=== PATIENT | male | born 1965 | race African-American/Black ===

== ENCOUNTER 2017-06-01 15:52 | Inpatient (IN) ==
[2017-06-01 17:35] LABS: Basophils # 0.1 10*3/uL (0.0-0.2); Basophils % 0.4 % (0.0-0.8); Eosinophils # 0.1 10*3/uL (0.0-0.87); Eosinophils % 0.9 % (0.00-10.9); Hematocrit 40.3 VOL% (42.0-52.0); Hemoglobin 14.1 GM/DL (14.0-18.0); Immature Granulocytes % 0.7 %; Immature Granulocytes Absolute 0.11 #; Lymphocytes # 1.5 10*3/uL (1.4-4.0); Lymphocytes % 9.4 % (21.2-54.2); Mean Corpuscular Hemoglobin 30 PG (27-34); Mean Corpuscular Volume 84.7 FL (87-102); Mean Platelet Volume 10.1 FL (9.6-12.0); Monocytes # 1.2 10*3/uL (0.11-0.8); Monocytes % 7.4 % (1.7-12.7); Neutrophils % 81.2 % (38.7-73.9); Platelet Count 401 T/CUMM (130-400); Red Blood Count 4.76 MC/CUMM (3.8-5.5); Red Cell Distribution Width 12.6 % (9.3-17.3)
[2017-06-01 17:46] LABS: PT Patient Result 10.4 SECS
[2017-06-01 18:04] LABS: Alanine Aminotransferase 46 U/L (16-61); Albumin 3.3 G/DL (3.4-5.0); Alkaline Phosphatase 107 U/L (45-117); Aspartate Amino Transferase 21 U/L (0-37); Blood Urea Nitrogen 14 MG/DL (7-18); Calcium 9.3 MG/DL (8.5-10.1); Glucose 96 MG/DL (74-106); Magnesium 2.2 MG/DL (1.8-2.4); Osmolality,Calculated 264.5 MOS/KG (273-304); Potassium 4.1 MMOL/L (3.5-5.1); Sodium 132 MMOL/L (136-145); Total Protein 7.8 G/DL (6.4-8.3); Troponin I Only < 0.015 NG/ML (0.00-0.045)
[2017-06-01] MEDS ORDERED: KETOROLAC 30 MG/1 ML VIAL IV STA (18:43)
[2017-06-01] MEDS ORDERED: methylPREDNISolone SOD SUC 125 MG/2 ML VIAL IV STA (18:43)
[2017-06-01] MEDS ORDERED: ONDANSETRON 4 MG/2 ML VIAL IV STA (18:43)
[2017-06-01] MEDS ORDERED: MORPHINE 2 MG/1 ML SYRINGE IV STA (18:43)
[2017-06-01] MEDS ORDERED: ENOXAPARIN 100 MG/ML SYRINGE SUBCUT STA (19:26)
[2017-06-01] MEDS ORDERED: KETOROLAC 30 MG/1 ML VIAL ONE (19:29)
[2017-06-01] MEDS ORDERED: ENOXAPARIN 100 MG/ML SYRINGE SUBCUT ONE (19:29)
[2017-06-01] MEDS ORDERED: methylPREDNISolone SOD SUC 125 MG/2 ML VIAL ONE (19:29)
[2017-06-01] MEDS ORDERED: ONDANSETRON 4 MG/2 ML VIAL ONE (19:29)
[2017-06-01] MEDS ORDERED: MORPHINE 2 MG/1 ML SYRINGE ONE (19:29)
[2017-06-01] MEDS ORDERED: ALBUTEROL/IPRATROPIUM 3 ML NEB RESP TX STA ×2 (20:01→20:59)
[2017-06-01] MEDS ORDERED: LACTULOSE 20 GM/30 ML UDCUP PO PRN (20:38)
[2017-06-01] MEDS ORDERED: ONDANSETRON 4 MG/2 ML VIAL IV PRN (20:38)
[2017-06-01] MEDS ORDERED: ENOXAPARIN 40 MG/0.4 ML SYRINGE SUBCUT STA (20:38)
[2017-06-01] MEDS ORDERED: BISACODYL 5 MG TABLET PO PRN (20:38)
[2017-06-01] MEDS ORDERED: MORPHINE 2 MG/1 ML SYRINGE IV PRN (20:38)
[2017-06-01] MEDS ORDERED: NICOTINE 21 MG/24 HR PATCH TRANSDERM PRN (20:38)
[2017-06-01] MEDS ORDERED: DOCUSATE SODIUM 100 MG CAPSULE PO PRN (20:38)
[2017-06-01] MEDS ORDERED: cefTRIAXone 1,000 MG in SODIUM CHLORIDE 0.9% 100 ML IV STA (20:43)
[2017-06-01 21:44] LABS: Free T4 (Free Thyroxine) 1.53 NG/DL (0.76-1.46); Magnesium 2.2 MG/DL (1.8-2.4); Risk Ratio 4.07; Thyroid Stimulating Hormone 1.24 uIU/ml (0.358-3.74); VLDL CHOLESTEROL 17.8 MG/DL
[2017-06-01] MEDS ORDERED: ALBUTEROL NEB SOLN 5 MG/ML 20 ML/BOTTLE CONT NEB STA (22:31)
[2017-06-02] MEDS: SENNA 8.6 MG TABLET PO SCH ×2 (00:46→22:52)
[2017-06-02] MEDS: MELATONIN 3 MG TABLET PO PRN (00:46)
[2017-06-02 01:18] LABS: Troponin I Only < 0.015 NG/ML (0.00-0.045)
[2017-06-02] MEDS ORDERED: cefTRIAXone 1,000 MG VIAL ONE (02:01)
[2017-06-02] MEDS ORDERED: SODIUM CHLORIDE 0.9% 50 ML IV ONE (02:01)
[2017-06-02 02:37] LABS: Apearance,Urine CLEAR (Clear); Bilirubin,Urine Negative (Negative); Blood, Urine Moderate mg/dL (Negative); Glucose,Urine (UA) Negative (Negative); Ketones,Urine Negative (Negative); Nitrite,Urine Negative (Negative); Protein,Urine Negative; RBC,Urine 1 /HPF (0-4); Urine Color Yellow (Yellow); Urine Specific Gravity 1.033 (1.001-1.035); WBC,Urine 1 /HPF (0-6)
[2017-06-02 05:24] LABS: Eosinophils % 0.1 % (0.00-10.9); Hematocrit 33.6 VOL% (42.0-52.0); Hemoglobin 11.9 GM/DL (14.0-18.0); Immature Granulocytes % 0.8 %; Immature Granulocytes Absolute 0.11 #; Lymphocytes # 0.6 10*3/uL (1.4-4.0); Lymphocytes % 4.9 % (21.2-54.2); Mean Corpuscular HGB Conc 35.4 GM/DL (32-36); Mean Corpuscular Hemoglobin 30 PG (27-34); Mean Corpuscular Volume 83.8 FL (87-102); Monocytes # 0.4 10*3/uL (0.11-0.8); Neutrophils # 11.9 10*3/uL (1.4-7.4); Neutrophils % 91.2 % (38.7-73.9); Platelet Count 368 T/CUMM (130-400); Red Blood Count 4.01 MC/CUMM (3.8-5.5); Red Cell Distribution Width 12.5 % (9.3-17.3)
[2017-06-02 05:59] LABS: Lymphocytes 1 % (20-55); Platelet Estimate Adequate; Segmented Neutrophils 95 % (50-85); Total Cells Counted 100
[2017-06-02 06:00] LABS: Giant Platelets Few; Hypochromasia Slight; Ovalocytes Slight
[2017-06-02 06:04] LABS: Albumin 2.7 G/DL (3.4-5.0); Bilirubin,Total 0.4 MG/DL (0.2-1.0); Calcium 8.9 MG/DL (8.5-10.1); Osmolality,Calculated 268.5 MOS/KG (273-304); Potassium 4.3 MMOL/L (3.5-5.1); Total Protein 6.5 G/DL (6.4-8.3)
[2017-06-02 06:40] LABS: Carcinoembryonic Antigen 1.4 NG/ML (0.0-5.0)
[2017-06-02] MEDS ORDERED: AZITHROMYCIN 250 MG TABLET PO SCH (09:00)
[2017-06-02] MEDS: methylPREDNISolone SOD SUC 40 MG/1 ML VIAL IV SCH ×2 (09:03→22:51)
[2017-06-02] MEDS: hydroCHLOROthiazide 25 MG TABLET PO SCH (09:03)
[2017-06-02] MEDS: PANTOPRAZOLE 40 MG TABLET PO SCH (09:03)
[2017-06-02] MEDS: ENOXAPARIN 100 MG/ML SYRINGE SUBCUT SCH ×2 (09:04→22:50)
[2017-06-02 09:14] LABS: ABG Base Excess 0.2 MMOL/L (-2.5-2.5); ABG HCO3 24.5 MMOL/L (20-26); ABG Oxygen Saturation 96.2 % (95-100); ABG PCO2 36.1 MM HG (35-48); ABG PH 7.432 (7.35-7.45); ABG PO2 81.9 MM HG (80-95); ABG TCO2 21.3 MMOL/L (23-27); Allen Test Positive; Pt O2 Delivery Device Room Air
[2017-06-02] MEDS: WARFARIN 5 MG TABLET PO SCH (17:03)
[2017-06-02] MEDS: DOXYCYCLINE HYCLATE 100 MG CAPSULE PO SCH (22:52)
[2017-06-03 08:06] LABS: PT Patient Result 10.5 SECS
[2017-06-03] MEDS ORDERED: APIXABAN 5 MG TABLET PO SCH (09:00)
[2017-06-03] MEDS: ENOXAPARIN 100 MG/ML SYRINGE SUBCUT SCH ×2 (09:04→22:01)
[2017-06-03] MEDS: methylPREDNISolone SOD SUC 40 MG/1 ML VIAL IV SCH (09:05)
[2017-06-03] MEDS: hydroCHLOROthiazide 25 MG TABLET PO SCH (09:05)
[2017-06-03] MEDS: PANTOPRAZOLE 40 MG TABLET PO SCH (09:05)
[2017-06-03] MEDS: DOXYCYCLINE HYCLATE 100 MG CAPSULE PO SCH ×2 (09:12→22:01)
[2017-06-03] MEDS: NICOTINE 21 MG/24 HR PATCH TRANSDERM SCH (17:58)
[2017-06-03] MEDS: WARFARIN 5 MG TABLET PO SCH (17:58)
[2017-06-03] MEDS: SENNA 8.6 MG TABLET PO SCH (22:03)
[2017-06-04] MEDS: oxyCODONE/ACETAMINOPHEN 5-325 MG TABLET PO PRN ×2 (05:40→23:17)
[2017-06-04 07:50] LABS: PT Patient Result 10.8 SECS
[2017-06-04] MEDS: ENOXAPARIN 100 MG/ML SYRINGE SUBCUT SCH ×2 (08:55→21:43)
[2017-06-04] MEDS: hydroCHLOROthiazide 25 MG TABLET PO SCH (08:55)
[2017-06-04] MEDS: DOXYCYCLINE HYCLATE 100 MG CAPSULE PO SCH ×2 (08:55→21:43)
[2017-06-04] MEDS: NICOTINE 21 MG/24 HR PATCH TRANSDERM SCH (08:55)
[2017-06-04 16:56] LABS: F5DNA Reviewed By SEE COMMENTS; Factor V Leiden (R506Q) Mutati Negative (Negative)
[2017-06-04] MEDS ORDERED: ACETAMINOPHEN 325 MG TABLET ONE (17:07)
[2017-06-04] MEDS ORDERED: ACETAMINOPHEN 325 MG TABLET PO PRN (17:13)
[2017-06-04] MEDS: WARFARIN 7.5 MG TABLET PO SCH (17:49)
[2017-06-04] MEDS: SENNA 8.6 MG TABLET PO SCH (21:43)
[2017-06-05 05:51] LABS: INR 1.1; PT Patient Result 11.7 SECS
[2017-06-05] MEDS: ENOXAPARIN 100 MG/ML SYRINGE SUBCUT SCH ×2 (09:05→21:37)
[2017-06-05] MEDS: DOXYCYCLINE HYCLATE 100 MG CAPSULE PO SCH ×2 (09:05→21:37)
[2017-06-05] MEDS: NICOTINE 21 MG/24 HR PATCH TRANSDERM SCH (09:05)
[2017-06-05] MEDS: hydroCHLOROthiazide 25 MG TABLET PO SCH (09:05)
[2017-06-05] MEDS: WARFARIN 7.5 MG TABLET PO SCH (17:33)
[2017-06-05] MEDS: oxyCODONE/ACETAMINOPHEN 5-325 MG TABLET PO PRN (17:35)
[2017-06-05] MEDS: SENNA 8.6 MG TABLET PO SCH (21:37)
[2017-06-06 06:21] LABS: Basophils # 0.1 10*3/uL (0.0-0.2); Basophils % 0.5 % (0.0-0.8); Eosinophils # 0.4 10*3/uL (0.0-0.87); Eosinophils % 3.2 % (0.00-10.9); Hematocrit 39.1 VOL% (42.0-52.0); Hemoglobin 13.8 GM/DL (14.0-18.0); Immature Granulocytes % 1.5 %; Immature Granulocytes Absolute 0.18 #; Lymphocytes # 1.3 10*3/uL (1.4-4.0); Lymphocytes % 10.9 % (21.2-54.2); Mean Corpuscular HGB Conc 35.3 GM/DL (32-36); Mean Corpuscular Hemoglobin 30 PG (27-34); Mean Corpuscular Volume 83.9 FL (87-102); Mean Platelet Volume 9.9 FL (9.6-12.0); Monocytes # 0.8 10*3/uL (0.11-0.8); Monocytes % 6.2 % (1.7-12.7); Neutrophils # 9.4 10*3/uL (1.4-7.4); Neutrophils % 77.7 % (38.7-73.9); Platelet Count 463 T/CUMM (130-400); Red Blood Count 4.66 MC/CUMM (3.8-5.5); Red Cell Distribution Width 12.6 % (9.3-17.3); White Blood Count 12.1 T/CUMM (4-12)
[2017-06-06 06:29] LABS: INR 1.3; PT Patient Result 13.3 SECS
[2017-06-06 06:52] LABS: Alanine Aminotransferase 42 U/L (16-61); Alkaline Phosphatase 121 U/L (45-117); Aspartate Amino Transferase 20 U/L (0-37); Bilirubin,Total < 0.39 MG/DL (0.2-1.0); Blood Urea Nitrogen 14 MG/DL (7-18); Calcium 9.2 MG/DL (8.5-10.1); Glucose 130 MG/DL (74-106); Osmolality,Calculated 264.7 MOS/KG (273-304); Potassium 4.4 MMOL/L (3.5-5.1); Sodium 131 MMOL/L (136-145)
[2017-06-06] MEDS: ENOXAPARIN 100 MG/ML SYRINGE SUBCUT SCH ×2 (09:44→21:01)
[2017-06-06] MEDS: DOXYCYCLINE HYCLATE 100 MG CAPSULE PO SCH ×2 (09:45→21:02)
[2017-06-06] MEDS: hydroCHLOROthiazide 25 MG TABLET PO SCH (09:45)
[2017-06-06] MEDS: NICOTINE 21 MG/24 HR PATCH TRANSDERM SCH (09:45)
[2017-06-06] MEDS: LEVOFLOXACIN 500 MG TABLET PO SCH (17:50)
[2017-06-06] MEDS: WARFARIN 7.5 MG TABLET PO SCH (17:50)
[2017-06-06] MEDS: oxyCODONE/ACETAMINOPHEN 5-325 MG TABLET PO PRN (21:01)
[2017-06-06] MEDS: SENNA 8.6 MG TABLET PO SCH (21:05)
[2017-06-07 06:24] LABS: INR 1.6; PT Patient Result 16.2 SECS
[2017-06-07] MEDS: DOXYCYCLINE HYCLATE 100 MG CAPSULE PO SCH ×2 (08:51→20:05)
[2017-06-07] MEDS: LEVOFLOXACIN 500 MG TABLET PO SCH (08:51)
[2017-06-07] MEDS: hydroCHLOROthiazide 25 MG TABLET PO SCH (08:51)
[2017-06-07] MEDS: ENOXAPARIN 100 MG/ML SYRINGE SUBCUT SCH ×2 (08:51→20:04)
[2017-06-07] MEDS: NICOTINE 21 MG/24 HR PATCH TRANSDERM SCH (08:51)
[2017-06-07] MEDS: WARFARIN 7.5 MG TABLET PO SCH (18:21)
[2017-06-07] MEDS: SENNA 8.6 MG TABLET PO SCH (20:04)
[2017-06-07] MEDS: oxyCODONE/ACETAMINOPHEN 5-325 MG TABLET PO PRN (20:05)
[2017-06-07] MEDS: MELATONIN 3 MG TABLET PO PRN (21:54)
[2017-06-08] MEDS: oxyCODONE/ACETAMINOPHEN 5-325 MG TABLET PO PRN ×2 (03:41→12:53)
[2017-06-08 07:53] LABS: INR 2.1
[2017-06-08 07:55] LABS: PT Patient Result 21.7 SECS
[2017-06-08] MEDS: NICOTINE 21 MG/24 HR PATCH TRANSDERM SCH (09:56)
[2017-06-08] MEDS: hydroCHLOROthiazide 25 MG TABLET PO SCH (09:56)
[2017-06-08] MEDS: DOXYCYCLINE HYCLATE 100 MG CAPSULE PO SCH (09:56)
[2017-06-08] MEDS: LEVOFLOXACIN 500 MG TABLET PO SCH (09:56)
[2017-06-08] MEDS: ENOXAPARIN 100 MG/ML SYRINGE SUBCUT SCH (09:57)
[2017-06-08 12:24] VITALS: BP 133/78
== END 2017-06-08 15:00 | disposition home or self-care (01) | DRG 175 ==
LOC: N.ED 15:52 → SUATTDRO 20:37 → N.ICU 20:37 → N.5E 06-02 17:46
PROVIDERS: ADMIT Internal Medicine; ATTEND Hospitalist

== ENCOUNTER 2018-08-03 09:55 | Observation (INO) ==
[2018-08-03] MEDS ORDERED: ASPIRIN 325 MG TABLET PO STA (10:24)
[2018-08-03] MEDS ORDERED: LABETALOL 20 MG/4 ML SYRINGE IV STA (10:24)
[2018-08-03 10:30] LABS: Basophils % 0.4 % (0.0-0.8); Eosinophils # 0.1 10*3/uL (0.0-0.87); Eosinophils % 1.2 % (0.00-10.9); Hematocrit 42.2 VOL% (42.0-52.0); Hemoglobin 14.1 GM/DL (14.0-18.0); Immature Granulocytes % 0.4 %; Immature Granulocytes Absolute 0.04 #; Lymphocytes # 1.8 10*3/uL (1.4-4.0); Lymphocytes % 19.5 % (21.2-54.2); Mean Corpuscular HGB Conc 33.4 GM/DL (32-36); Mean Corpuscular Hemoglobin 29 PG (27-34); Mean Corpuscular Volume 87.6 FL (87-102); Mean Platelet Volume 10.1 FL (9.6-12.0); Monocytes # 0.5 10*3/uL (0.11-0.8); Monocytes % 5.2 % (1.7-12.7); Neutrophils # 6.7 10*3/uL (1.4-7.4); Neutrophils % 73.3 % (38.7-73.9); Platelet Count 255 T/CUMM (130-400); Red Blood Count 4.82 MC/CUMM (3.8-5.5); Red Cell Distribution Width 13.5 % (9.3-17.3); White Blood Count 9.2 T/CUMM (4-12)
[2018-08-03 10:37] LABS: INR 0.9; PT Patient Result 10.2 SECS; Partial Thromboplastin Time 27.1 SECS (0-40)
[2018-08-03 11:01] LABS: Alanine Aminotransferase 25 U/L (16-61); Albumin 3.5 G/DL (3.4-5.0); Alkaline Phosphatase 74 U/L (45-117); Aspartate Amino Transferase 15 U/L (0-37); Bilirubin,Total < 0.39 MG/DL (0.2-1.0); Blood Urea Nitrogen 10 MG/DL (7-18); Calcium 8.8 MG/DL (8.5-10.1); Glucose 86 MG/DL (74-106); Osmolality,Calculated 276.4 MOS/KG (273-304); Potassium 3.9 MMOL/L (3.5-5.1); Sodium 140 MMOL/L (136-145); Total Protein 7.2 G/DL (6.4-8.3)
[2018-08-03 11:04] LABS: Apearance,Urine CLEAR (Clear); Bilirubin,Urine Negative (Negative); Blood, Urine Moderate mg/dL (Negative); Glucose,Urine (UA) Negative (Negative); Ketones,Urine Negative (Negative); Mucus,Urine Occasional /LPF (Occasional); Nitrite,Urine Negative (Negative); Protein,Urine Negative; RBC,Urine 8 /HPF (0-4); Urine Color Yellow (Yellow); Urine Specific Gravity 1.011 (1.001-1.035); Urine Urobilinogen < 2.0 EU/DL (0.2-1.0); WBC,Urine <1 /HPF (0-6)
[2018-08-03 11:13] LABS: Barbiturates Screen,Urine Negative (Negative); Benzodiazepines Screen,Urine Negative (Negative); Cannabinoid Screen,Urine Positive (Negative); Opiate Screen,Urine Negative (Negative); Phencyclidine Screen,Urine Negative (Negative)
[2018-08-03] MEDS ORDERED: ACETAMINOPHEN 325 MG TABLET PO PRN (12:17)
[2018-08-03] MEDS ORDERED: ONDANSETRON 4 MG/2 ML VIAL IV PRN (12:17)
[2018-08-03] MEDS ORDERED: DOCUSATE SODIUM 100 MG CAPSULE PO PRN (12:17)
[2018-08-03] MEDS ORDERED: NICOTINE 21 MG/24 HR PATCH TRANSDERM PRN (12:17)
[2018-08-03] MEDS ORDERED: ENOXAPARIN 40 MG/0.4 ML SYRINGE SUBCUT SCH (12:30)
[2018-08-03] MEDS ORDERED: amLODIPine 10 MG TABLET ONE (13:22)
[2018-08-03] MEDS ORDERED: amLODIPine 5 MG TABLET PO STA (13:25)
[2018-08-03] MEDS: PANTOPRAZOLE 40 MG TABLET PO SCH (13:34)
[2018-08-03] MEDS ORDERED: hydrALAZINE 20 MG/1 ML VIAL IV PRN (15:02)
[2018-08-03] MEDS: LOSARTAN/HCTZ 50-12.5 MG TABLET PO SCH (17:19)
[2018-08-03] MEDS ORDERED: ATORVASTATIN 40 MG TABLET PO SCH (21:00)
[2018-08-04 05:30] LABS: Basophils % 0.3 % (0.0-0.8); Eosinophils # 0.1 10*3/uL (0.0-0.87); Eosinophils % 0.8 % (0.00-10.9); Hematocrit 45.1 VOL% (42.0-52.0); Hemoglobin 15.5 GM/DL (14.0-18.0); Immature Granulocytes % 0.3 %; Immature Granulocytes Absolute 0.03 #; Lymphocytes % 18.2 % (21.2-54.2); Mean Corpuscular HGB Conc 34.4 GM/DL (32-36); Mean Corpuscular Hemoglobin 29 PG (27-34); Mean Corpuscular Volume 85.1 FL (87-102); Mean Platelet Volume 10.4 FL (9.6-12.0); Monocytes # 0.4 10*3/uL (0.11-0.8); Neutrophils # 8.5 10*3/uL (1.4-7.4); Neutrophils % 76.4 % (38.7-73.9); Platelet Count 286 T/CUMM (130-400); Red Cell Distribution Width 13.5 % (9.3-17.3); White Blood Count 11.1 T/CUMM (4-12)
[2018-08-04 05:53] LABS: Calcium 9.4 MG/DL (8.5-10.1); Osmolality,Calculated 273.7 MOS/KG (273-304); Potassium 3.8 MMOL/L (3.5-5.1); Risk Ratio 4.13; Thyroid Stimulating Hormone 1.13 uIU/ml (0.358-3.74); VLDL CHOLESTEROL 22.6 MG/DL
[2018-08-04] MEDS: LOSARTAN/HCTZ 50-12.5 MG TABLET PO SCH (08:03)
[2018-08-04] MEDS: PANTOPRAZOLE 40 MG TABLET PO SCH (08:04)
[2018-08-04] MEDS ORDERED: ASPIRIN 325 MG TABLET PO SCH (09:00)
[2018-08-04] MEDS ORDERED: amLODIPine 5 MG TABLET PO SCH (09:30)
[2018-08-04] MEDS ORDERED: HEPARIN DRIP 25,000 UNITS/500 ML PREMIX IV SCH (09:30)
[2018-08-04 11:56] VITALS: BP 141/92
[2018-08-04] MEDS ORDERED: APIXABAN 5 MG TABLET PO SCH (13:30)
== END 2018-08-04 14:20 | disposition home or self-care (01) ==
LOC: EDBD → EDUNIT# → N.ED 09:55 → N.EDINP 09:55 → N.4E 15:05
PROVIDERS: ADMIT Internal Medicine; ATTEND Internal Medicine

== ENCOUNTER 2019-04-21 02:25 | Inpatient (IN) ==
[2019-04-21] MEDS ORDERED: HYDROmorphone 2 MG/1 ML VIAL IV STA (02:41)
[2019-04-21] MEDS ORDERED: ONDANSETRON 4 MG/2 ML VIAL IV STA (02:41)
[2019-04-21] MEDS ORDERED: SODIUM CHLORIDE 0.9% 1,000 ML IV STA (02:41)
[2019-04-21 03:39] LABS: Basophils # 0.1 10*3/uL (0.0-0.2); Basophils % 0.5 % (0.0-0.8); Eosinophils % 0.1 % (0.00-10.9); Hematocrit 51.5 VOL% (42.0-52.0); Hemoglobin 17.7 GM/DL (14.0-18.0); Immature Granulocytes % 1.3 %; Lymphocytes % 12.9 % (21.2-54.2); Mean Corpuscular HGB Conc 34.4 GM/DL (32-36); Mean Platelet Volume 9.7 FL (9.6-12.0); Neutrophils % 81.2 % (38.7-73.9); Platelet Count 315 T/CUMM (130-400); Red Blood Count 5.92 MC/CUMM (3.8-5.5); Red Cell Distribution Width 13.4 % (9.3-17.3); White Blood Count 15.6 T/CUMM (4-12)
[2019-04-21 03:51] LABS: Albumin 3.6 G/DL (3.4-5.0); Bilirubin,Total 0.7 MG/DL (0.2-1.0); Calcium 9.2 MG/DL (8.5-10.1); Osmolality,Calculated 279.4 MOS/KG (273-304); Total Protein 6.9 G/DL (6.4-8.3)
[2019-04-21] MEDS ORDERED: LEVOFLOXACIN INJ 750 MG in PREMIX 1 EACH IV STA (05:34)
[2019-04-21 06:25] LABS: Apearance,Urine CLEAR (Clear); Bilirubin,Urine Negative (Negative); Blood, Urine Small mg/dL (Negative); Glucose,Urine (UA) Negative (Negative); Ketones,Urine 20 mg/dL (Negative); Mucus,Urine Occasional /LPF (Occasional); Nitrite,Urine Negative (Negative); Protein,Urine Negative; RBC,Urine 8 /HPF (0-4); Urine Color Yellow (Yellow); Urine Specific Gravity 1.044 (1.001-1.035); Urine Urobilinogen < 2.0 EU/DL (0.2-1.0); WBC,Urine <1 /HPF (0-6)
[2019-04-21] MEDS ORDERED: LEVOFLOXACIN INJ 750 MG in PREMIX 1 EACH IV SCH (10:00)
[2019-04-21] MEDS ORDERED: NICOTINE 21 MG/24 HR PATCH TRANSDERM PRN (10:00)
[2019-04-21] MEDS ORDERED: hydrALAZINE 25 MG TABLET PO SCH (10:00)
[2019-04-21] MEDS ORDERED: hydrALAZINE 20 MG/1 ML VIAL IV PRN (10:03)
[2019-04-21] MEDS ORDERED: PIPERACILLIN/TAZOBACTAM 3,375 MG in SODIUM CHLORIDE 0.9% 100 ML IV SCH (11:00)
[2019-04-21] MEDS: hydrALAZINE 25 MG TABLET PO SCH ×3 (12:20→20:58)
[2019-04-21] MEDS ORDERED: ONDANSETRON 4 MG/2 ML VIAL IV ONE (12:22)
[2019-04-21] MEDS ORDERED: MORPHINE 4 MG/1 ML VIAL IV ONE (12:22)
[2019-04-21] MEDS ORDERED: ONDANSETRON 4 MG/2 ML VIAL IV PRN ×2 (12:22→14:19)
[2019-04-21] MEDS ORDERED: POTASSIUM CHLORIDE RIDER 10 MEQ in PREMIX 1 EACH IV PRN (12:23)
[2019-04-21] MEDS ORDERED: MAGNESIUM SULF RIDER 4 GM in PREMIX 1 EACH IV PRN ×3 (12:23→13:29)
[2019-04-21] MEDS ORDERED: MAGNESIUM SULF RIDER 2 GM in PREMIX 1 EACH IV PRN ×3 (12:23→13:29)
[2019-04-21] MEDS ORDERED: SODIUM CHLORIDE 0.45% 1,000 ML IV SCH (12:30)
[2019-04-21] MEDS: HEPARIN 5,000 UNIT/1 ML VIAL SUBCUT SCH ×2 (13:28→20:57)
[2019-04-21] MEDS ORDERED: CIPROFLOXACIN INJ 400 MG in PREMIX 1 EACH IV SCH (13:30)
[2019-04-21] MEDS ORDERED: VANCOMYCIN INJ 1,000 MG in SODIUM CHLORIDE 0.9% 250 ML IV SCH (14:00)
[2019-04-21] MEDS ORDERED: hydrALAZINE 20 MG/1 ML VIAL IV ONE (14:01)
[2019-04-21] MEDS ORDERED: MORPHINE 4 MG/1 ML VIAL IV PRN (14:13)
[2019-04-21] MEDS: AZITHROMYCIN INJ 500 MG in SODIUM CHLORIDE 0.9% 250 ML IV SCH (14:29)
[2019-04-21] MEDS: NICOTINE 21 MG/24 HR PATCH TRANSDERM SCH (14:29)
[2019-04-21] MEDS ORDERED: metroNIDAZOLE INJ 500 MG in PREMIX 1 EACH IV SCH (14:30)
[2019-04-21] MEDS: POTASSIUM CHLORIDE INJ 30 MEQ in DEXTROSE 5% NACL 0.45% 1,000 ML IV SCH (15:28)
[2019-04-21] MEDS: VANCOMYCIN INJ 1,500 MG in SODIUM CHLORIDE 0.9% 500 ML IV SCH (15:28)
[2019-04-21] MEDS: HYDROmorphone 2 MG/1 ML VIAL IV PRN ×2 (16:07→22:25)
[2019-04-21] MEDS: PIPERACILLIN/TAZOBACTAM 3,375 MG in SODIUM CHLORIDE 0.9% 100 ML IV SCH (20:57)
[2019-04-22] MEDS: VANCOMYCIN INJ 1,500 MG in SODIUM CHLORIDE 0.9% 500 ML IV SCH ×2 (03:31→14:14)
[2019-04-22] MEDS: HEPARIN 5,000 UNIT/1 ML VIAL SUBCUT SCH ×3 (05:15→21:43)
[2019-04-22 05:43] LABS: Basophils % 0.2 % (0.0-0.8); Eosinophils % 0.3 % (0.00-10.9); Hematocrit 42.3 VOL% (42.0-52.0); Hemoglobin 14.5 GM/DL (14.0-18.0); Immature Granulocytes % 0.4 %; Immature Granulocytes Absolute 0.06 #; Lymphocytes # 2.3 10*3/uL (1.4-4.0); Mean Corpuscular HGB Conc 34.3 GM/DL (32-36); Mean Corpuscular Volume 87.6 FL (87-102); Mean Platelet Volume 9.8 FL (9.6-12.0); Monocytes % 7.6 % (1.7-12.7); Neutrophils % 74.5 % (38.7-73.9); Platelet Count 259 T/CUMM (130-400); Red Blood Count 4.83 MC/CUMM (3.8-5.5); Red Cell Distribution Width 13.4 % (9.3-17.3); White Blood Count 13.7 T/CUMM (4-12)
[2019-04-22 06:04] LABS: Calcium 8.5 MG/DL (8.5-10.1); Osmolality,Calculated 277.4 MOS/KG (273-304)
[2019-04-22 06:08] LABS: Bilirubin,Total 0.9 MG/DL (0.2-1.0); Calcium 8.2 MG/DL (8.5-10.1); Osmolality,Calculated 277.4 MOS/KG (273-304); Total Protein 5.6 G/DL (6.4-8.3)
[2019-04-22 06:14] LABS: HDL Cholesterol 33 MG/DL (40-60); Risk Ratio 1.52; Thyroid Stimulating Hormone 0.891 uIU/ml (0.358-3.74); Triglycerides 127 MG/DL (2-150); VLDL CHOLESTEROL 25.4 MG/DL
[2019-04-22] MEDS: PIPERACILLIN/TAZOBACTAM 3,375 MG in SODIUM CHLORIDE 0.9% 100 ML IV SCH ×3 (06:14→21:40)
[2019-04-22] MEDS: amLODIPine 5 MG TABLET PO SCH (08:14)
[2019-04-22] MEDS: hydrALAZINE 25 MG TABLET PO SCH ×3 (08:14→21:42)
[2019-04-22] MEDS: NICOTINE 21 MG/24 HR PATCH TRANSDERM SCH (08:14)
[2019-04-22] MEDS: PANTOPRAZOLE 40 MG VIAL IV SCH (08:14)
[2019-04-22] MEDS ORDERED: ASPIRIN 325 MG TABLET PO SCH (09:00)
[2019-04-22] MEDS: buPROPion SR 100 MG TABLET PO SCH ×2 (11:39→21:42)
[2019-04-22] MEDS: AZITHROMYCIN INJ 500 MG in SODIUM CHLORIDE 0.9% 250 ML IV SCH (14:15)
[2019-04-22] MEDS: POTASSIUM CHLORIDE INJ 30 MEQ in DEXTROSE 5% NACL 0.45% 1,000 ML IV SCH ×2 (14:15→21:42)
[2019-04-22] MEDS: HYDROmorphone 2 MG/1 ML VIAL IV PRN (17:32)
[2019-04-23] MEDS: VANCOMYCIN INJ 1,500 MG in SODIUM CHLORIDE 0.9% 500 ML IV SCH ×2 (03:36→15:02)
[2019-04-23 05:37] LABS: Basophils % 0.3 % (0.0-0.8); Eosinophils # 0.1 10*3/uL (0.0-0.87); Eosinophils % 1.2 % (0.00-10.9); Hematocrit 42.2 VOL% (42.0-52.0); Hemoglobin 14.5 GM/DL (14.0-18.0); Immature Granulocytes % 0.4 %; Immature Granulocytes Absolute 0.04 #; Lymphocytes # 2.1 10*3/uL (1.4-4.0); Lymphocytes % 22.5 % (21.2-54.2); Mean Corpuscular HGB Conc 34.4 GM/DL (32-36); Mean Corpuscular Volume 88.3 FL (87-102); Mean Platelet Volume 9.9 FL (9.6-12.0); Monocytes % 7.5 % (1.7-12.7); Neutrophils % 68.1 % (38.7-73.9); Platelet Count 249 T/CUMM (130-400); Red Blood Count 4.78 MC/CUMM (3.8-5.5); Red Cell Distribution Width 13.2 % (9.3-17.3); White Blood Count 9.1 T/CUMM (4-12)
[2019-04-23 05:51] LABS: Calcium 8.5 MG/DL (8.5-10.1); Osmolality,Calculated 277.4 MOS/KG (273-304)
[2019-04-23 05:56] LABS: Albumin 3.1 G/DL (3.4-5.0); Bilirubin,Total 1.5 MG/DL (0.2-1.0); Calcium 8.3 MG/DL (8.5-10.1); Osmolality,Calculated 277.4 MOS/KG (273-304); Total Protein 5.9 G/DL (6.4-8.3)
[2019-04-23] MEDS: PIPERACILLIN/TAZOBACTAM 3,375 MG in SODIUM CHLORIDE 0.9% 100 ML IV SCH ×3 (06:24→21:40)
[2019-04-23] MEDS: HEPARIN 5,000 UNIT/1 ML VIAL SUBCUT SCH ×3 (06:24→21:41)
[2019-04-23] MEDS: amLODIPine 5 MG TABLET PO SCH (08:16)
[2019-04-23] MEDS: hydrALAZINE 25 MG TABLET PO SCH ×3 (08:16→21:40)
[2019-04-23] MEDS: buPROPion SR 100 MG TABLET PO SCH ×2 (08:18→21:40)
[2019-04-23] MEDS: PANTOPRAZOLE 40 MG VIAL IV SCH (08:18)
[2019-04-23] MEDS: NICOTINE 21 MG/24 HR PATCH TRANSDERM SCH (08:19)
[2019-04-23] MEDS: POTASSIUM CHLORIDE INJ 30 MEQ in DEXTROSE 5% NACL 0.45% 1,000 ML IV SCH (11:02)
[2019-04-23] MEDS: AZITHROMYCIN INJ 500 MG in SODIUM CHLORIDE 0.9% 250 ML IV SCH (13:52)
[2019-04-23] MEDS: HYDROmorphone 2 MG/1 ML VIAL IV PRN (15:02)
[2019-04-24] MEDS: VANCOMYCIN INJ 1,500 MG in SODIUM CHLORIDE 0.9% 500 ML IV SCH ×2 (03:15→15:52)
[2019-04-24] MEDS: POTASSIUM CHLORIDE INJ 30 MEQ in DEXTROSE 5% NACL 0.45% 1,000 ML IV SCH ×2 (06:02→09:39)
[2019-04-24] MEDS: PIPERACILLIN/TAZOBACTAM 3,375 MG in SODIUM CHLORIDE 0.9% 100 ML IV SCH ×2 (06:04→15:52)
[2019-04-24] MEDS: HEPARIN 5,000 UNIT/1 ML VIAL SUBCUT SCH ×3 (06:05→21:51)
[2019-04-24 06:33] LABS: Basophils % 0.3 % (0.0-0.8); Eosinophils # 0.1 10*3/uL (0.0-0.87); Eosinophils % 1.1 % (0.00-10.9); Hematocrit 40.8 VOL% (42.0-52.0); Immature Granulocytes % 0.4 %; Immature Granulocytes Absolute 0.04 #; Lymphocytes # 1.6 10*3/uL (1.4-4.0); Lymphocytes % 17.1 % (21.2-54.2); Mean Corpuscular HGB Conc 34.3 GM/DL (32-36); Mean Corpuscular Volume 88.3 FL (87-102); Monocytes % 7.5 % (1.7-12.7); Neutrophils % 73.6 % (38.7-73.9); Platelet Count 254 T/CUMM (130-400); Red Blood Count 4.62 MC/CUMM (3.8-5.5); Red Cell Distribution Width 13.4 % (9.3-17.3); White Blood Count 9.4 T/CUMM (4-12)
[2019-04-24 06:51] LABS: Albumin 3.3 G/DL (3.4-5.0); Bilirubin,Total 1.6 MG/DL (0.2-1.0); Calcium 8.4 MG/DL (8.5-10.1); Osmolality,Calculated 278.3 MOS/KG (273-304)
[2019-04-24] MEDS: buPROPion SR 100 MG TABLET PO SCH ×2 (08:28→21:51)
[2019-04-24] MEDS: hydrALAZINE 25 MG TABLET PO SCH ×3 (08:28→21:51)
[2019-04-24] MEDS: amLODIPine 5 MG TABLET PO SCH (08:28)
[2019-04-24] MEDS: NICOTINE 21 MG/24 HR PATCH TRANSDERM SCH (08:29)
[2019-04-24] MEDS: PANTOPRAZOLE 40 MG VIAL IV SCH (08:29)
[2019-04-24 11:25] LABS: INR 0.9; PT Patient Result 10.1 SECS (9.6-12.2)
[2019-04-24] MEDS ORDERED: DIAZEPAM 5 MG TABLET PO ONE (12:30)
[2019-04-24] MEDS: AZITHROMYCIN INJ 500 MG in SODIUM CHLORIDE 0.9% 250 ML IV SCH (14:18)
[2019-04-24] MEDS: CEFTAROLINE 600 MG in SODIUM CHLORIDE 0.9% 100 ML IV SCH (16:23)
[2019-04-25] MEDS: HEPARIN 5,000 UNIT/1 ML VIAL SUBCUT SCH (04:44)
[2019-04-25] MEDS: CEFTAROLINE 600 MG in SODIUM CHLORIDE 0.9% 100 ML IV SCH (04:45)
[2019-04-25 06:17] LABS: Calcium 8.4 MG/DL (8.5-10.1); Osmolality,Calculated 276.4 MOS/KG (273-304)
[2019-04-25 07:57] VITALS: BP 124/99
[2019-04-25] MEDS: buPROPion SR 100 MG TABLET PO SCH (08:31)
[2019-04-25] MEDS: hydrALAZINE 25 MG TABLET PO SCH (08:31)
[2019-04-25] MEDS: NICOTINE 21 MG/24 HR PATCH TRANSDERM SCH (08:31)
[2019-04-25] MEDS: amLODIPine 5 MG TABLET PO SCH (08:31)
[2019-04-25] MEDS: PANTOPRAZOLE 40 MG VIAL IV SCH (09:18)
== END 2019-04-25 10:15 | disposition home or self-care (01) | DRG 602 ==
LOC: N.ED 02:25 → N.EDINP 10:13 → N.5E 12:09
PROVIDERS: ADMIT Hospitalist; ATTEND Hospitalist

== ENCOUNTER 2019-07-06 11:17 | Observation (INO) ==
[2019-07-06] MEDS ORDERED: SODIUM CHLORIDE 0.9% 500 ML IV STA (11:53)
[2019-07-06] MEDS ORDERED: ONDANSETRON 4 MG/2 ML VIAL IV STA (11:53)
[2019-07-06 12:24] LABS: Basophils # 0.1 10*3/uL (0.0-0.2); Basophils % 0.3 % (0.0-0.8); Eosinophils % 0.1 % (0.00-10.9); Hematocrit 47.6 VOL% (42.0-52.0); Hemoglobin 16.4 GM/DL (14.0-18.0); Immature Granulocytes % 0.4 %; Immature Granulocytes Absolute 0.06 #; Lymphocytes # 0.8 10*3/uL (1.4-4.0); Lymphocytes % 5.4 % (21.2-54.2); Mean Corpuscular HGB Conc 34.5 GM/DL (32-36); Mean Corpuscular Volume 87.3 FL (87-102); Mean Platelet Volume 9.8 FL (9.6-12.0); Monocytes % 2.2 % (1.7-12.7); Neutrophils % 91.6 % (38.7-73.9); Platelet Count 326 T/CUMM (130-400); Red Blood Count 5.45 MC/CUMM (3.8-5.5); Red Cell Distribution Width 13.6 % (9.3-17.3); White Blood Count 14.3 T/CUMM (4-12)
[2019-07-06] MEDS ORDERED: KETOROLAC 30 MG/1 ML VIAL IV STA (12:32)
[2019-07-06 12:37] LABS: Apearance,Urine CLEAR (Clear); Bacteria,Urine Occasional /HPF (Few); Bilirubin,Urine Negative (Negative); Blood, Urine Moderate mg/dL (Negative); Glucose,Urine (UA) 50 mg/dL (Negative); Ketones,Urine 20 mg/dL (Negative); Mucus,Urine Occasional /LPF (Occasional); Nitrite,Urine Negative (Negative); Protein,Urine 100 MG/DL; RBC,Urine 38 /HPF (0-4); Urine Color Straw (Yellow); Urine Specific Gravity 1.008 (1.001-1.035); Urine Urobilinogen < 2.0 EU/DL (0.2-1.0); WBC,Urine <1 /HPF (0-6)
[2019-07-06 12:47] LABS: Albumin 4.2 G/DL (3.4-5.0); Calcium 9.6 MG/DL (8.5-10.1); Osmolality,Calculated 269.2 MOS/KG (273-304); Total Protein 7.5 G/DL (6.4-8.3)
[2019-07-06 12:58] LABS: Band Neutrophils 1 % (0-10); Lymphocytes 7 % (20-55); Platelet Estimate Normal; Segmented Neutrophils 88 % (50-85); Total Cells Counted 100
[2019-07-06] MEDS ORDERED: HYDROmorphone 2 MG/1 ML VIAL ONE (13:51)
[2019-07-06] MEDS ORDERED: LACTULOSE 20 GM/30 ML UDCUP PO PRN (14:58)
[2019-07-06] MEDS ORDERED: ACETAMINOPHEN 325 MG TABLET PO PRN (14:58)
[2019-07-06] MEDS ORDERED: ENOXAPARIN 40 MG/0.4 ML SYRINGE SUBCUT SCH (15:00)
[2019-07-06 15:52] LABS: Risk Ratio 3.31; Thyroid Stimulating Hormone 0.978 uIU/ml (0.358-3.74)
[2019-07-06] MEDS ORDERED: HYDROmorphone 2 MG/1 ML VIAL IV STA (16:17)
[2019-07-06] MEDS: SODIUM CHLORIDE 0.9% 1,000 ML IV SCH (16:30)
[2019-07-06] MEDS: metroNIDAZOLE INJ 500 MG in PREMIX 1 EACH IV SCH ×2 (16:30→23:55)
[2019-07-06] MEDS: METOPROLOL TARTRATE 5 MG/5 ML VIAL IV SCH ×2 (18:52→23:56)
[2019-07-06] MEDS: ONDANSETRON 4 MG/2 ML VIAL IV PRN (18:55)
[2019-07-06] MEDS ORDERED: CIPROFLOXACIN INJ 200 MG in PREMIX 1 EACH IV SCH (20:00)
[2019-07-06] MEDS: ATORVASTATIN 40 MG TABLET PO SCH (21:25)
[2019-07-06] MEDS: APIXABAN 5 MG TABLET PO SCH (21:25)
[2019-07-06] MEDS: buPROPion SR 100 MG TABLET PO SCH (21:25)
[2019-07-07 05:53] LABS: Basophils % 0.1 % (0.0-0.8); Eosinophils % 0.1 % (0.00-10.9); Hemoglobin 15.3 GM/DL (14.0-18.0); Immature Granulocytes % 0.5 %; Immature Granulocytes Absolute 0.08 #; Lymphocytes % 12.2 % (21.2-54.2); Mean Corpuscular HGB Conc 34.8 GM/DL (32-36); Mean Corpuscular Volume 86.6 FL (87-102); Mean Platelet Volume 10.3 FL (9.6-12.0); Monocytes % 7.1 % (1.7-12.7); Platelet Count 305 T/CUMM (130-400); Red Blood Count 5.08 MC/CUMM (3.8-5.5); Red Cell Distribution Width 13.8 % (9.3-17.3)
[2019-07-07 06:31] LABS: Calcium 8.8 MG/DL (8.5-10.1); Osmolality,Calculated 276.5 MOS/KG (273-304)
[2019-07-07] MEDS: SODIUM CHLORIDE 0.9% 1,000 ML IV SCH ×2 (06:44→07:44)
[2019-07-07] MEDS: METOPROLOL TARTRATE 5 MG/5 ML VIAL IV SCH ×3 (06:46→17:54)
[2019-07-07 07:01] LABS: Apearance,Urine CLEAR (Clear); Bilirubin,Urine Negative (Negative); Blood, Urine Large mg/dL (Negative); Glucose,Urine (UA) Negative (Negative); Granular Casts,Urine 1 /LPF (0-1); Hyaline Casts,Urine 7 /LPF (0-3); Ketones,Urine Negative (Negative); Mucus,Urine Few /LPF (Occasional); Nitrite,Urine Negative (Negative); Protein,Urine >=500 MG/DL; RBC,Urine 8 /HPF (0-4); Squamous Epithelial Cell,Urine Occasional /HPF (0-10); Urine Color Yellow (Yellow); Urine Specific Gravity 1.019 (1.001-1.035); Urine Urobilinogen < 2.0 EU/DL (0.2-1.0); WBC,Urine 7 /HPF (0-6)
[2019-07-07 08:08] LABS: Barbiturates Screen,Urine Negative (Negative); Benzodiazepines Screen,Urine Negative (Negative); Opiate Screen,Urine Positive (Negative); Phencyclidine Screen,Urine Negative (Negative)
[2019-07-07] MEDS ORDERED: MAGNESIUM SULF RIDER 2 GM in PREMIX 1 EACH IV PRN (08:13)
[2019-07-07] MEDS ORDERED: MAGNESIUM SULF RIDER 4 GM in PREMIX 1 EACH IV PRN (08:13)
[2019-07-07 08:16] LABS: Cannabinoid Screen,Urine Positive (Negative)
[2019-07-07] MEDS: metroNIDAZOLE INJ 500 MG in PREMIX 1 EACH IV SCH ×2 (08:40→15:04)
[2019-07-07] MEDS: ASPIRIN 325 MG TABLET PO SCH (08:41)
[2019-07-07] MEDS: LOSARTAN/HCTZ 50-12.5 MG TABLET PO SCH (08:41)
[2019-07-07] MEDS: PANTOPRAZOLE 40 MG TABLET PO SCH (08:41)
[2019-07-07] MEDS: buPROPion SR 100 MG TABLET PO SCH ×2 (08:41→20:45)
[2019-07-07] MEDS: amLODIPine 5 MG TABLET PO SCH (08:41)
[2019-07-07] MEDS: NICOTINE 21 MG/24 HR PATCH TRANSDERM SCH (08:41)
[2019-07-07] MEDS: APIXABAN 5 MG TABLET PO SCH ×2 (08:41→20:45)
[2019-07-07] MEDS: CIPROFLOXACIN INJ 400 MG in PREMIX 1 EACH IV SCH ×2 (10:05→20:47)
[2019-07-07 10:07] LABS: HIV Antigen/Antibody Result Nonreactive (Nonreactive)
[2019-07-07] MEDS: ONDANSETRON 4 MG/2 ML VIAL IV PRN (15:05)
[2019-07-07] MEDS: ATORVASTATIN 40 MG TABLET PO SCH (20:46)
[2019-07-08] MEDS: metroNIDAZOLE INJ 500 MG in PREMIX 1 EACH IV SCH ×2 (00:01→09:52)
[2019-07-08] MEDS: METOPROLOL TARTRATE 5 MG/5 ML VIAL IV SCH ×3 (00:58→11:57)
[2019-07-08] MEDS: SODIUM CHLORIDE 0.9% 1,000 ML IV SCH ×2 (04:01→06:18)
[2019-07-08 05:55] LABS: Basophils % 0.2 % (0.0-0.8); Eosinophils # 0.1 10*3/uL (0.0-0.87); Eosinophils % 0.4 % (0.00-10.9); Hematocrit 43.1 VOL% (42.0-52.0); Immature Granulocytes % 0.7 %; Immature Granulocytes Absolute 0.11 #; Lymphocytes % 12.5 % (21.2-54.2); Mean Corpuscular HGB Conc 34.8 GM/DL (32-36); Mean Corpuscular Volume 87.4 FL (87-102); Mean Platelet Volume 9.9 FL (9.6-12.0); Monocytes % 6.8 % (1.7-12.7); Neutrophils % 79.4 % (38.7-73.9); Platelet Count 281 T/CUMM (130-400); Red Blood Count 4.93 MC/CUMM (3.8-5.5); Red Cell Distribution Width 13.7 % (9.3-17.3); White Blood Count 16.4 T/CUMM (4-12)
[2019-07-08 06:15] LABS: Calcium 8.5 MG/DL (8.5-10.1); Osmolality,Calculated 271.8 MOS/KG (273-304)
[2019-07-08] MEDS: ASPIRIN 325 MG TABLET PO SCH (09:47)
[2019-07-08] MEDS: amLODIPine 5 MG TABLET PO SCH (09:48)
[2019-07-08] MEDS: PANTOPRAZOLE 40 MG TABLET PO SCH (09:48)
[2019-07-08] MEDS: buPROPion SR 100 MG TABLET PO SCH (09:48)
[2019-07-08] MEDS: LOSARTAN/HCTZ 50-12.5 MG TABLET PO SCH (09:48)
[2019-07-08] MEDS: APIXABAN 5 MG TABLET PO SCH (09:49)
[2019-07-08] MEDS ORDERED: CIPROFLOXACIN 500 MG TABLET PO SCH (10:04)
[2019-07-08] MEDS: NICOTINE 21 MG/24 HR PATCH TRANSDERM SCH (10:05)
[2019-07-08] MEDS: CIPROFLOXACIN INJ 400 MG in PREMIX 1 EACH IV SCH (10:06)
[2019-07-08 11:31] VITALS: BP 123/71
[2019-07-08] MEDS ORDERED: metroNIDAZOLE 500 MG TABLET PO SCH (12:00)
[2019-07-09] MEDS ORDERED: amLODIPine 10 MG TABLET PO SCH (09:00)
== END 2019-07-08 15:39 | disposition home or self-care (01) ==
LOC: N.ED 11:17 → N.EDINP 11:17 → N.5E 16:51
PROVIDERS: ADMIT Internal Medicine; ATTEND Internal Medicine